=== PATIENT | female | born 1990 | race African-American/Black ===

== ENCOUNTER 2021-04-23 09:29 | Outpatient (REF) | payer OTHER, SELFPAY ==
[2021-04-23 16:52] LABS: Alanine Aminotransferase 27 U/L (0-31); Aspartate Amino Transferase 26 U/L (5-31)
[2021-04-24 04:13] LABS: HIV AB/AG Nonreactive (Nonreactive); HIV Num 1 0.08 S/CO (0.00-0.99)
[2021-04-24 04:35] LABS: ~HepC Num1 0.05 S/CO (0.00-0.79); ~Hepatitis C Antibody Nonreactive (Nonreactive)
== END 2021-04-23 09:30 | disposition home or self-care (01) ==
LOC: WCCF 09:29
PROVIDERS: Visit Provider Internal Medicine
DX: Z77.21 Contact with and (suspected) exposure to potentially hazardous body fluids (principal)
CPT/HCPCS: 36415; 84450; 84460; 86803; 87389; 99203

== ENCOUNTER → 2021-06-15 10:00 | Outpatient (BNVA) | payer OTHER, SELFPAY | DX: Z77.21 Contact with and (suspected) exposure to potentially hazardous body fluids (principal) | CPT/HCPCS: 36415; 84450; 84460; 99211 ==

== ENCOUNTER → 2021-07-27 13:18 | Outpatient (BNVA) | payer OTHER, SELFPAY | DX: Z77.21 Contact with and (suspected) exposure to potentially hazardous body fluids (principal) | CPT/HCPCS: 99211 ==